=== PATIENT | female | born 1980 | race Caucasian/White ===

== ENCOUNTER 2019-04-04 16:46 | Emergency (ER) | payer OTHER ==
[~2019-04-04] VITALS: Ht 162.6 cm; Wt 99.8 kg
[~2019-04-04 16:46] MED LIST: LITH150C PO; METO50TA7 PO; SERT100T PO; TRAZ150T75 PO
[2019-04-04 17:02] VITALS: BP 103/64
[2019-04-04] MEDS ORDERED: ACETAMINOPHEN ES 500 MG TABLET ONE (17:26)
[2019-04-04] MEDS ORDERED: ACETAMINOPHEN 325 MG TABLET PO ONE (17:30)
--- NOTE | 2019-04-04 18:17 | NUR ---
Patient discharged to home in stable condition. Written and verbal after care instructions given. Patient verbalizes understanding of instruction.
== END 2019-04-04 18:17 | disposition home or self-care (01) ==
LOC: ER 16:49
DX: M25.511 Pain in right shoulder (principal); I10 Essential (primary) hypertension; F32.9 Major depressive disorder, single episode, unspecified; Z79.899 Other long term (current) drug therapy
CPT/HCPCS: 73030-TC